=== PATIENT | male | born 1955 | race Caucasian/White ===

== ENCOUNTER → 2017-08-25 | Outpatient (CLI) | payer OTHER ==
--- NOTE | 2017-08-25 13:16 | Diagnostic Imaging Report ---
INDICATION: Cough. TIME OF EXAM: 1:11 PM No prior studies are available for comparison. FINDINGS: The lungs do show some hyperinflation suggestive of COPD. The heart size is normal. No infiltrates are seen. There is no effusion or pneumothorax. IMPRESSION: Probable COPD. No acute feature is detected. Dictated by: Dictated on workstation # [id number]
== END ==
LOC: RAD 12:29
PROVIDERS: ATTEND Internal Medicine Critical Care Medicine
DX: J44.9 Chronic obstructive pulmonary disease, unspecified (principal); F17.200 Nicotine dependence, unspecified, uncomplicated
CPT/HCPCS: 71046